=== PATIENT | male | born 1960 | race Caucasian/White ===

== ENCOUNTER 2017-07-11 12:30 | Inpatient (IN) | payer BC ==
[2017-07-25] MEDS ORDERED: CELECOXIB 100 MG CAPSULE PO ONE (06:00)
[2017-07-25] MEDS ORDERED: ACETAMINOPHEN 1,000 MG/100 ML BTL IV ONE (06:00)
[2017-07-25] MEDS ORDERED: METOCLOPRAMIDE 10 MG TABLET PO ONE (06:00)
[2017-07-25] MEDS ORDERED: VANCOMYCIN HCL 1,000 MG in 0.9 % SODIUM CHLORIDE 250ML 250 ML IVPB ONE (06:00)
[2017-07-25] MEDS ORDERED: MECLIZINE 25 MG TABLET PO ONE (06:00)
[2017-07-25] MEDS ORDERED: FAMOTIDINE 20MG TABLET PO ONE (06:00)
[2017-07-25] MEDS ORDERED: BUPIVACAINE LIPOSOME 266MG/20ML VIAL IV ONE (09:46)
[2017-07-25] MEDS ORDERED: BUPIVACAINE 0.5% W/EPI MPF 30 ML VIAL IVP ONE (09:46)
[2017-07-25] MEDS ORDERED: VANCOMYCIN HCL 1 GM VIAL IVPB ONE (09:46)
[2017-07-25] MEDS ORDERED: TRANEXAMIC ACID 1,000 MG/10 ML ML IV ONE ×2 (09:46→15:58)
[2017-07-25 12:04] LABS: ABO GROUP A; ANTIBODY SCREEN NEGATIVE (NEGATIVE); RH TYPE NEGATIVE
[2017-07-25] MEDS ORDERED: ACETAMINOPHEN W/ CODEINE 300MG/60MG TABLET PO PRN ×2 (12:52)
[2017-07-25] MEDS ORDERED: MAGNESIUM HYDROXIDE 30 ML UDC PO PRN (12:52)
[2017-07-25] MEDS ORDERED: TRAMADOL HCL 50 MG TABLET PO PRN ×2 (12:52)
[2017-07-25] MEDS ORDERED: ZOLPIDEM TARTRATE 5 MG TABLET PO PRN (12:52)
[2017-07-25] MEDS ORDERED: ACETAMINOPHEN W/ CODEINE 300MG/30MG TABLET PO PRN ×2 (12:52)
[2017-07-25] MEDS ORDERED: HYDROCODONE/APAP 5/325MG TABLET PO PRN ×2 (12:52)
[2017-07-25] MEDS ORDERED: BISACODYL 10 MG SUPP RC PRN (12:52)
[2017-07-25] MEDS ORDERED: NALOXONE 0.4 MG/1 ML VIAL IVP PRN (12:52)
[2017-07-25] MEDS ORDERED: METOCLOPRAMIDE HCL 10 MG/2 ML VIAL IVP PRN (12:52)
[2017-07-25] MEDS ORDERED: HYDROMORPHONE HCL 2 MG/ML VIAL IM PRN (12:52)
[2017-07-25] MEDS ORDERED: DEXTROSE 5 % AND 0.9 % NACL 1,000 ML IV PRN (12:52)
[2017-07-25] MEDS ORDERED: HYDROMORPHONE HCL 1MG/ML **SYRINGE IM PRN (12:52)
[2017-07-25] MEDS ORDERED: MORPHINE SULFATE 5 MG/ML PFS IVP PRN ×4 (12:52)
[2017-07-25] MEDS ORDERED: ACETAMINOPHEN 325 MG TAB PO PRN (12:52)
[2017-07-25] MEDS ORDERED: DIPHENHYDRAMINE HCL 25 MG CAPSULE PO PRN (12:52)
[2017-07-25] MEDS ORDERED: HYDROCODONE/APAP 7.5/325MG TABLET PO PRN (12:52)
[2017-07-25] MEDS ORDERED: AL HYDROX/MAG HYDROX 30ML UD PO PRN (12:52)
[2017-07-25] MEDS ORDERED: KETOROLAC 30 MG/ML VIAL IVP PRN ×2 (12:52)
[2017-07-25] MEDS ORDERED: ONDANSETRON HCL IV 4 MG/2 ML VIAL IVP PRN (12:52)
[2017-07-25] MEDS ORDERED: PROMETHAZINE HCL 12.5 MG in 0.9 % SODIUM CHLORIDE 100ML 50 ML IVPB PRN (12:52)
[2017-07-25] MEDS ORDERED: ALPRAZOLAM 1 MG TAB PO ONE (13:49)
[2017-07-25] MEDS ORDERED: FENTANYL PF 100MCG/2ML VIAL IV ONE (15:04)
[2017-07-25] MEDS ORDERED: *PACU ONLY* KETAMINE HCL 10 MG/ML (20ML) VIAL IV ONE (15:04)
[2017-07-25] MEDS ORDERED: PROPOFOL 10 MG/ML VIAL IV ONE (15:04)
[2017-07-25] MEDS ORDERED: HYDROMORPHONE HCL 2 MG/ML VIAL IV ONE (15:04)
[2017-07-25] MEDS ORDERED: MIDAZOLAM HCL 2MG/2ML VIAL IV ONE (15:04)
[2017-07-25] MEDS: FERROUS SULFATE 325 MG TAB PO SCH (21:22)
[2017-07-25] MEDS: DOCUSATE SODIUM 100 MG CAPSULE PO SCH (21:22)
[2017-07-26] MEDS: VANCOMYCIN HCL 1,000 MG in 0.9 % SODIUM CHLORIDE 250ML 250 ML IVPB SCH ×2 (00:12→13:17)
--- NOTE | 2017-07-26 05:48 | Operative Note ---
DATE: 07/25/2017. PREOPERATIVE DIAGNOSIS: ENDSTAGE RIGHT HIP ARTHROSIS. PREOPERATIVE DIAGNOSIS: ENDSTAGE RIGHT HIP ARTHROSIS. PROCEDURE: Right total hip arthroplasty. SURGEON: Saran Sullivan M.D. ANESTHESIA: Spinal. Dora Barney CRNA. COMPLICATIONS: None. BLOOD LOSS: 200 mL. OPERATIVE FINDINGS: Severe [id number] hip arthrosis with deformity. COMPONENTS PLACED: A pressed proximally porous-coated [employer] Synergy total hip arthroplasty system. A size 15 high offset, a 32 + 0 mm Oxinium head. A 56 mm Reflexion 3-0 acetabular shell with two screw caps, centrally threaded screw cap, and one acetabular screw. A high crosslinked 35-degree polyethylene liner. INDICATIONS FOR OPERATION: This is a 57-year-old male who has had persistent pain and dysfunction, he said, for several years. He has failed nonoperative treatment and scheduled for hip replacement. I explained the risks and benefits of surgery, the diagnosis and procedures. These include but are not limited to, infection, nerve injury, vessel injury, persistent pain numbness, tingling in his hip, a periprosthetic fracture, need for resection arthroplasty , the fact that components can loosen, injury to nerves and vessels, blood clot , limb length discrepancy, the need for anticoagulation to prevent blood clots, and the risks associated with his medications. All of his questions were answered. The treatment course was thoroughly outlined, and he agreed to proceed. PROCEDURE: Patient was brought to the operating room and placed in the left lateral decubitus position. His right hip and lower extremity were prepped and draped in sterile fashion. Prepped with ChloraPrep and draped. Intraoperative time out was performed. Next, a posterior approach was marked over the hip. We infiltrated with 0.5% Marcaine with epi. Skin and subcutaneous tissue dissected down to the gluteal fascia. The gluteal fascia was split longitudinally and the subgluteal plane was bluntly dissected. I then brought in the self retainer. Next we took short external rotators and tagged them with #2 Vicryl. I then identified the sciatic nerve and carefully protected at all times. Then we incised the capsule up along the femoral neck proximally and released it transversely, proximally, and distally. I then dislocated the femoral head. The femoral head was severely deformed with completely eburnated bone with large osteophytes. We then resected about 1.5 cm above the lesser trochanter. Next, I inserted a reamer and started reaming in 1.0 mm increments up to a size 15. We stopped there, broached at 12 to 14 calcar plane, and then to 15. The trial fit nicely , and we stopped there. It fit proximally nicely. Next, attention was turned to the acetabulum. We placed the inferior acetabular retractor, released the capsule anteriorly, and placed a cobra retractor there to retract the proximal femur. We had good exposure of the acetabulum. He had severe synovitis in the acetabulum. We resected that out. We then started reaming with a 45 mm reamer working in 1.0 mm increments at 45 degrees inclination and 20 degrees of anteversion until we reamed up to a size 55. We then trialed a size 56 shell, and it fit nicely so this is the size we used. Next we inserted the three-holed flexion acetabular shell and impacted down the acetabular shell component until it was down medially. Next, we drilled a posterosuperior central quadrant screw hole and inserted that screw to 35 mm. We had good purchase and it fit nicely. Next we placed a trial liner and did a trial reduction. Best combination for range of motion, stability, and leg lengths was with a standard 32 mm + 0 head. This allowed for good abductor tension. We had flexion to 90 and internal rotation to 80 before the hip dislocated. We had stability with extension and external rotation and symmetric leg lengths. Next, we removed all trial components and irrigated the acetabulum copiously. We placed two screw caps and centrally threaded screw cap and impacted down the real 35-degree hooded polyethylene liner with moscoso in the posterosuperior quadrant. Next we impacted down the real size 15 high offset femoral stem until the bead line was flush with our cut. We cleaned the trunnion and impacted down the real femoral head component and found that range of motion felt the same. We irrigated copiously. Injected the wound with our mixture of 0.5% Marcaine with epi, Exparel, and 2.0 gm of tranexamic acid through the deep capsule, gluteal muscle, and then subcutaneous and closed. Repaired the external rotators to the abductors using a #2-0 Vicryl. We irrigated again and closed the gluteal fascia with running #2 Quill and closed the skin with with deep 2-0 Vicryl and then a zip line was applied. The patient tolerated the procedure well with no intraoperative complications. All sponge and needle counts were correct. X-ray showed good alignment of the components. Sterile dressings were applied. Applied an abduction pillow, and he will be discharged in one to two days. cc: Christiana Diaz
[2017-07-26 06:43] LABS: HEMOGLOBIN 10.6 gm/dl (14.0-18.0)
[2017-07-26] MEDS: HYDROCODONE/APAP 7.5/325MG TABLET PO PRN ×5 (07:48→22:03)
--- NOTE | 2017-07-26 09:08 | RADIOLOGY REPORT ---
EXAM: AP RIGHT HIP HISTORY: STATUS POST TOTAL RIGHT HIP ARTHROPLASTY. TECHNIQUE: AP view of the right hip was obtained. Comparison: None. FINDINGS: Status post total right hip arthroplasty. Anatomic alignment. No fracture. IMPRESSION: STATUS POST TOTAL RIGHT HIP ARTHROPLASTY. NO IMMEDIATE COMPLICATIONS. JOB NUMBER: [id number] MTDD
[2017-07-26] MEDS: CELECOXIB 100 MG CAPSULE PO SCH (09:09)
[2017-07-26] MEDS: DOCUSATE SODIUM 100 MG CAPSULE PO SCH ×2 (09:10→22:04)
[2017-07-26] MEDS: FERROUS SULFATE 325 MG TAB PO SCH ×2 (09:10→22:03)
[2017-07-26] MEDS: RIVAROXABAN 10 MG TABLET PO SCH (09:11)
--- NOTE | 2017-07-26 10:21 | Rehab Evaluation ---
Patient Information - Patient Information Diagnosis: OA right hip Ordered Treatment: PT Evaluate and Treat Status: Initial Evaluation Surgery: Yes (PARAS right) Date of Surgery: 07/25/17 Past Medical/Surgical Hx: PAST MEDICAL/SURGICAL HISTORY Past Surgical History C-SCOPE T/A PMH - Respiratory Hx Respiratory Disorders No PMH - Cardiovascular Hx Cardiovascular Disorders No Exercise Tolerance Good PMH - Neuro Hx Neurological Disorders No PMH - GI Hx Gastrointestinal Disorders No PMH - Hx Genitourinary Disorders Yes Hx Kidney Stones Yes: 7 YRS AGO PMH - Endocrine Hx Endocrine Disorders No PMH - Musculoskeletal Hx Musculoskeletal Disorders Yes Hx Arthritis Yes: RT HIP ARTHROSIS PMH - Psych Hx Psychiatric Problems No PMH - Hematology/Oncology Hx Hematology/Oncology No Disorders Social History: Detail (Lives with who will be able to help him at home. Has 12 steps to get up to bedroom but patient can be on first floor when first gets home. Has three to four steps to get into house only. Has walker to use at home, raised toilet seat, shower chair and plans home therapy initially.) Precautions: Half Way, Fall - Time With Patient Total Time Spent With Patient (Min): 30 Treatment Procedures: Detail (Patient seen bedside, seated in raised chair but leaning off right hip and has been up for a couple of hours. Sit to stand with CGA only with FWW then ambulated into youngblood and to stairs about 40 feet. Able to ambulate down three steps with rail and folded walker then pivoted around and back up three steps with same support, CGA and WBAT. Ambulated back to room and into bed with slight assist with right LE. Able to repeat hip precautions then worked on exercises for right hip: heel slides, SLR, quad, ham and glut sets, ankle pumps and hip abduction exercises. Up in bed independently.) Subjective Information - Subjective Information Per Patient Objective Data - Pain Pain Present: Yes Pain Scale Used: Minimal - Mental Status Patient Orientation: Oriented x3 - Visual Perception Appears within normal limits for therapeutic activities - ROM Within normal limits (except right hip decreased 50% yet and according to hip precautions.) - Strength/Tone Within normal limits (except right hip 3-/5 yet.) - Coordination Appears within normal limits for therapeutic activities - Bed Mobility Needs Assist (Needs some assist to lift leg into bed yet and do SLR) - Transfers Needs Assist - Balance Balance Sitting: Good Balance Standing: Good - Sensation Intact (Some numbness in hip and some pain with exercises.) - Gait Detail (Able to ambulate with FWW about 80 feet or so today with WBAT, CGA and did perform stairs safely with walker and rail, also CGA.) - Special Tests No Therapy Assessment - Therapy Assessment Detail (Patient doing very well already and safe with gait, should have SBA for stairs. Pain controlled and WBAT.) Patient Education - Patient Education Teaching Topic: Equipment Use, Exercise/Activity Response: Return Demonstration Teaching Method: Discussion, Demonstration Teaching Recipient: Patient, Family Barriers To Learning: None Problem List - Problem List Physical Therapy Problem List: Detail (Some decreased functional mobility yet and endurance decreased secondary to surgery but should progress well.) Goals - Goals Physical Therapy Goals: Independent with bed mobility, transfers, gait with appropriate assistive device, gait community distances as needed, stairs as needed to go home safely. Prognosis - Prognosis Good (Patient doing extremely well already and should be able to be discharged home this afternoon/evening with assist of and family.) Plan - Plan Physical Therapy Plan: Continue PT BID today if not discharged home early. Has passed skills to go home if that is best for family. If stays this afternoon, will try more stairs so make sure safe to go to second level of home if needed for best sleep.
--- NOTE | 2017-07-26 14:04 | Rehab Evaluation ---
Patient Information - Patient Information Diagnosis: OA right hip Ordered Treatment: OT Evaluate and Treat Status: Initial Evaluation Surgery: Yes (PARAS right) Date of Surgery: 07/25/17 Past Medical/Surgical Hx: PAST MEDICAL/SURGICAL HISTORY Past Surgical History C-SCOPE T/A PMH - Respiratory Hx Respiratory Disorders No PMH - Cardiovascular Hx Cardiovascular Disorders No Exercise Tolerance Good PMH - Neuro Hx Neurological Disorders No PMH - GI Hx Gastrointestinal Disorders No PMH - Hx Genitourinary Disorders Yes Hx Kidney Stones Yes: 7 YRS AGO PMH - Endocrine Hx Endocrine Disorders No PMH - Musculoskeletal Hx Musculoskeletal Disorders Yes Hx Arthritis Yes: RT HIP ARTHROSIS PMH - Psych Hx Psychiatric Problems No PMH - Hematology/Oncology Hx Hematology/Oncology No Disorders Social History: Detail (Pt lives with , 3 daughters and father in law in a 2 story house with basement. His bedroom and bathroom are on the 2nd floor. Has 12 steps to get up to bedroom but patient can be on first floor when first gets home. Has three to four steps to get into house only. He has a tub/shower combination with a tub bench and one grab bar and a toilet riser and commode chair. He has a 2 wheeled walker, straight cane, raised toilet seat and shower chair. He is responsible for yard work but family will be assisting with all ADLs and IADLs after discharge.) Precautions: [place], Fall, Other (total hip arthroplasty precautions) - Time With Patient Total Time Spent With Patient (Min): 45 Treatment Procedures: Detail (OT eval low complexity) Subjective Information - Subjective Information Per Patient, Other (Per spouse) Objective Data - Pain Pain Present: Yes (1/10 pain in right hip) - Mental Status Patient Orientation: Oriented x3 - Visual Perception Appears within normal limits for therapeutic activities - ROM Within normal limits (Phill UE AROM WNL) - Strength/Tone Within normal limits (Phill UE strength WNL) - Coordination Appears within normal limits for therapeutic activities - ADL's/IADL's Detail (Pt and spouse report they are not really interested in adaptive equipment as pt will not be home alone. They were receptive to education re: use of adaptive equipment but pt refused to demonstrate dressing techniques.) Therapy Assessment - Therapy Assessment Detail (Pt and spouse feel no adaptive equipment is needed although they will think about it. Educated re: total hip precautions and use of equipment for LE dressing and pt verbalized learning. Spouse reports she will be helping pt with all ADLs.) Problem List - Problem List Physical Therapy Problem List: Detail (Some decreased functional mobility yet and endurance decreased secondary to surgery but should progress well.) Occupational Therapy Problem List: Detail (No current OT problems identified at this time.) Goals - Goals Physical Therapy Goals: Independent with bed mobility, transfers, gait with appropriate assistive device, gait community distances as needed, stairs as needed to go home safely. Occupational Therapy Goals: No current OT goals identified. Prognosis - Prognosis Good Plan - Plan Physical Therapy Plan: Continue PT BID today if not discharged home early. Has passed skills to go home if that is best for family. If stays this afternoon, will try more stairs so make sure safe to go to second level of home if needed for best sleep. Occupational Therapy Plan: No further IP OT recommended. Thank you for this referral.
--- NOTE | 2017-07-26 15:31 | Physical Therapy Tx Note ---
Physical Therapy Tx Note - Treatment Note Tolerated: Good (Patient feeling much better this afternoon and wants to walk but doesn't feel that he needs to do stairs again. The home health people will work on that. Able to walk 100+ feet in youngblood and understood hip precautions well. Exercises without difficulty and patient able to do SLR now.) Total Time Spent With Patient: 30 Physical Therapy Tx Note: Detail (Patient seen bedside, supine to sit to stand independently then ambulated to bathroom with FWW and SBA, WBAT. Able to ambulate then in youngblood about 100 feet then back to bed. Into bed with very little assist with right LE then reviewed hip precautions, able to perform exercises without difficulty for right hip: heel slides, quad, glut and ham sets , SLR and ankle pumps.) Physical Therapy Problem List: Detail (Some decreased functional mobility yet and endurance decreased secondary to surgery but should progress well. In PM, patient much better with mobility and able to move about easily. Able to do exercises well and gait with FWW safe.) Physical Therapy Goals: Independent with bed mobility, transfers, gait with appropriate assistive device, gait community distances as needed, stairs as needed to go home safely. Prognosis: Good (Patient has met goals for discontinuing PT; doing very well with all mobility, exercises, gait, hip precautions. Needs more work on steps but safe enough to go home now.) Physical Therapy Plan: Continue PT BID today if not discharged home early. Has passed skills to go home if that is best for family. If stays this afternoon, will try more stairs so make sure safe to go to second level of home if needed for best sleep. In PM: Patient staying another night but doing well and does not require any more PT treatment.
[2017-07-27 06:54] LABS: HEMATOCRIT 31.3 % (42.0-52.0); HEMOGLOBIN 9.9 gm/dl (14.0-18.0)
[2017-07-27] MEDS: HYDROCODONE/APAP 7.5/325MG TABLET PO PRN (09:24)
[2017-07-27] MEDS: CELECOXIB 100 MG CAPSULE PO SCH (09:24)
[2017-07-27] MEDS: FERROUS SULFATE 325 MG TAB PO SCH (09:25)
[2017-07-27] MEDS: DOCUSATE SODIUM 100 MG CAPSULE PO SCH (09:25)
[2017-07-27] MEDS: RIVAROXABAN 10 MG TABLET PO SCH (09:25)
--- NOTE | 2017-07-27 11:58 | Occupational Therapy Tx Note ---
Occupational Therapy Tx Note - Treatment Note Occupational Therapy Treatment Note: Detail (Checked with patient re: adaptive equipment and he reports he does not wish to purchase any at this time.) Occupational Therapy Problem List: Detail (No current OT problems identified at this time.) Occupational Therapy Goals: No current OT goals identified. Occupational Therapy Plan: No further IP OT recommended. Thank you for this referral.
== END 2017-07-27 12:00 | disposition home or self-care (01) | DRG 470 ==
LOC: MEDSURG 07-25 10:48
PROVIDERS: ADMIT Orthopaedic Surgery; ATTEND Orthopaedic Surgery
PROC: 0SR906Z Replacement of Right Hip Joint with Oxidized Zirconium on Polyethylene Synthetic Substitute, Open Approach (ICD-10-PCS; principal; 2017-07-25 13:00)
DX: M16.11 Unilateral primary osteoarthritis, right hip (principal)
CPT/HCPCS: 85014; 85018; 86850; 86900; 86901; 94761; 97110; 97116; 97165; C1776; J2405; J7050